=== PATIENT | male | born 1945 | race Caucasian/White ===

== ENCOUNTER 2018-07-21 14:01 | Inpatient (IN) ==
[2018-07-21] MEDS ORDERED: Loratadine 10 MG TABLET PO PRN (18:45)
[2018-07-21] MEDS ORDERED: MOM Conc 10 ML UD.LIQ PO PRN (18:53)
[2018-07-21] MEDS ORDERED: Sennosides 8.6 MG TABLET PO PRN (18:55)
[2018-07-21] MEDS ORDERED: Ondansetron ODT 4 MG TAB.RAPDIS SL PRN (18:55)
[2018-07-21] MEDS ORDERED: Acetaminophen 325 MG TABLET PO PRN (18:56)
[2018-07-21] MEDS ORDERED: Mag Hydrox/Al Hydrox/Simeth 30 ML UDC PO PRN (18:56)
[2018-07-21] MEDS ORDERED: Naloxone 0.4 MG/ML INJ IVP PRN (18:58)
[2018-07-21] MEDS: *HR* OxyCODONE Immed Rel 5 MG TABLET PO PRN (20:08)
[2018-07-22] MEDS: *HR* OxyCODONE Immed Rel 5 MG TABLET PO PRN ×3 (05:43→20:15)
[2018-07-22 06:50] LABS: Basophils # 0.1 K/mcL (0.0-0.2); Basophils % 0.5 %; Eosinophils # 0.3 K/mcL (0.0-0.6); Hematocrit 38.1 % (37.5-50.1); Immature Granulocytes % 1.5 % (0-4); Lymphocytes # 1.8 K/mcL (0.6-4.6); Lymphocytes % 16.5 %; Mean Corpuscular HGB Conc 34.1 g/dL (31.6-35.5); Mean Corpuscular Hemoglobin 30.4 pg (28.0-33.3); Mean Corpuscular Volume 89.2 fL (83.0-100.0); Mean Platelet Volume 10.1 fL (9.4-12.4); Monocytes # 1.5 K/mcL (0.0-1.3); Monocytes % 13.5 %; Neutrophils # 7.1 K/mcL (1.6-8.9); Platelet Count 208 K/mcL (140-400); Red Blood Count 4.27 M/mcL (4.19-5.50); Red Cell Distribution Width 12.4 % (11.5-14.5); White Blood Count 10.9 K/mcL (4.3-11.1)
[2018-07-22 07:03] LABS: INR 1.3; Prothrombin Time 14.5 Seconds (9.4-12.1)
[2018-07-22 07:06] LABS: Activated Partial Thrombo Time 26.2 Seconds (26.0-36.0)
[2018-07-22 07:08] LABS: BUN/Creatinine Ratio 21 (6-26); Blood Urea Nitrogen 18 mg/dL (8-23); Calcium 8.3 mg/dL (8.6-10.3); Carbon Dioxide 26 mEq/L (23-29); Chloride 98 mEq/L (98-107); Glucose 135 mg/dL (70-105); Osmolality,Calculated 272 (280-300); Sodium 129 mEq/L (136-145); eGFR For African Americans > 60 (> 60); eGFR For Non-African Americans > 60 (> 60)
[2018-07-22] MEDS: Ascorbic Acid 500 MG TABLET PO SCH ×2 (09:43→16:04)
[2018-07-22] MEDS: Multivit/Ca/Min/Fe/FA 1 TAB TABLET PO SCH (09:43)
[2018-07-22] MEDS: *HR* Enoxaparin 40 MG/0.4 ML SYRINGE SQ SCH (09:43)
--- NOTE | 2018-07-22 12:27 | Internal Med History&Physical ---
Date of Encounter: 07/22/18 Time of Encounter: 12:25 Assessment and Plan (1) Status post total replacement of left hip Current visit: Yes Status: Acute PT and OT to eval and treat. Will follow progress. Follow up with Dr. Calderon as scheduled. Monitor pain. Controlled at this time. Continue Lovenox for DVT prophylaxis. (2) History of CVA (cerebrovascular accident) Current visit: Yes Status: Chronic No new neurological deficits. No deficits remaining from CVA. (3) Arthritis of left hip Current visit: Yes Status: Chronic Status post left total hip replacement. (4) Obesity (BMI 30.0-34.9) Current visit: No Status: Chronic Internal Medicine - H&P: HPI Admitted From: Hospital to Hospital Transfer Plans for Post Hospital Care: Home History of present illness: Mr. Bhagat is a 73 year old male admitted to inpatient rehab unit status post left total hip replacement. Had left total hip replacement on 07/18/[address] Calderon at [place] and [place]. Past medical history includes CVA, left hip arthritis. Patient retired last week from work and lives at home. States pain is controlled with current medication. Denies fever, chills, nausea vomiting or diarrhea. Denies chest pain and shortness of breath. States last bowel movement was 4 days ago. Started on stool softeners. Maintaining appetite and hydration. Past Med Surg Social Fam HX - Past Medical History Medical history: cancer, TIA Additional medical history: skin, Cerebral aneurysm, lumbar radiculopathy with disc herniation, basal cell carcinoma, actoinic keratosis Psychiatric history: no psych history - Past Surgical History Surgical History: other Additional surgical history: Anuerysm repair, skin ca, herniation at l2l3, hip sx - Social History Smoking Status: Never smoker Smokeless Tobacco Status: No Alcohol use: occasionally Drug use: none - Family History Mother Living Status: Hx Family Cardiac Disorders: No Hx Family Respiratory Disorders: No Hx Family Cancer: No Hx Family GI Disorders: No Hx Family Endocrine Disorder: No Hx Family Neuromuscular Disorders: No Hx Family Neurologic Disorders: No Hx Family HEENT Disorders: No Hx Family Autoimmune Disorders: No Father Living Status: Age at : 82 Cause of : stroke Hx Family Cardiac Disorders: No Hx Family Respiratory Disorders: No Hx Family Cancer: No Hx Family GI Disorders: No Internal Medicine - H&P: Meds Aspirin Enteric Coated [Aspirin EC] 325 mg PO BID #20 tablet. 07/18/18 [Rx] Loratadine [Allergy Relief] 10 mg PO DAILY PRN 07/18/18 [History] OxyCODONE Immed Rel [Roxicodone 5 MG] 5 mg PO Q6HR PRN 5 Days #20 tablet 07/18/18 [Rx] Ascorbic Acid [Vitamin C] 500 mg PO BIDWM 07/21/18 [History] Docusate [Colace] 100 mg PO BID 07/21/18 [History] Allergy/AdvReac Type Severity Reaction Status Date / Time No Known Allergies Allergy Verified 10/10/15 08:10 All Systems PM: A 10-system review of systems was performed and is negative for pertinent findings except as documented above in the HPI. - Constitutional Constitutional: no chills, no fever(s), no night sweats - EENT Eyes: no change in vision, no discharge, no pain, no photophobia Ears: no ear discharge, no ear pain, no tinnitus Nose, mouth and throat: no dysphagia, no nasal discharge, no neck pain, no sore throat - Cardiovascular Cardiovascular ROS IM: no chest pain, no diaphoresis, no dyspnea, no lightheadedness, no palpitations, no syncope - Respiratory Respiratory: no cough, no dyspnea, no wheezing, no excessive phlegm production - Gastrointestinal Gastrointestinal: no abdominal pain, no diarrhea, no hematemesis, no hematochezia, no melena, no nausea, no vomiting - Musculoskeletal Musculoskeletal ROS IM: no numbness, no tingling - Integumentary Integumentary IM: no rash, no unusual bruising - Neurological Neurological ROS: no confusion, no convulsions, no focal weakness, no numbness, no tingling, no tremor(s) - Hematologic/Lymphatic Hematologic/Lymphatic: no easy bruising - Constitutional Vitals: Temp Pulse Resp BP Pulse Ox 98.5 F 81 18 131/80 95 07/22/18 06:51 07/22/18 06:51 07/22/18 06:51 07/22/18 06:51 07/22/18 06:51 General appearance: Present: cooperative, A&O X 3, pleasant, no acute distress, obese, answers questions appropriately - Head Head exam: Present: atraumatic, normocephalic - Eye Eye exam: Present: PERRL, conjuntiva pink, sclera anicteric Pupils: Present: PERRL - Neck Neck exam general surgery: Present: supple, trachea midline. Absent: lymp hadenopathy - Respiratory Respiratory exam: Present: CTAB. Absent: accessory muscle use, rales, rhonchi, wheezes - Cardiovascular Cardiovascular exam: Present: RRR, +S1, +S2. Absent: diastolic murmur, gallop, rubs, systolic murmur - GI/Abdominal GI/Abdominal exam: Present: normal bowel sounds, soft, no peritoneal signs. Absent: distended, tenderness - Extremities Exam Extremities exam: Present: warm, radial pulses palpable and symmetrical. Absent: calf tenderness, cyanotic, pedal edema - Incison Comments: Left hip dressing dry and intact. Surrounding edema - Neurological Exam Neurological exam: Present: CN II-XII intact, oriented X3, no focal deficits. Absent: pronater drift, facial droop, speech deficit - Skin Skin exam: Present: dry, intact Internal Med - H&P Results - Labs CBC & Chem 7: 07/22/18 05:55 07/22/18 05:55 Labs: Short CBC 07/22/18 Range/Units 05:55 WBC 10.9 (4.3-11.1) K/mcL Hgb 13.0 (12.9-16.9) g/dL Hct 38.1 (37.5-50.1) % Plt Count 208 (140-400) K/mcL Neutrophils # 7.1 (1.6-8.9) K/mcL BMP 07/22/18 05:55 Sodium 129 L Potassium 4.0 Chloride 98 Carbon Dioxide 26 BUN 18 Creatinine 0.84 Glucose 135 H Calcium 8.3 L
[2018-07-23] MEDS: Ascorbic Acid 500 MG TABLET PO SCH ×2 (08:37→17:12)
[2018-07-23] MEDS: Multivit/Ca/Min/Fe/FA 1 TAB TABLET PO SCH (08:37)
[2018-07-23] MEDS: *HR* Enoxaparin 40 MG/0.4 ML SYRINGE SQ SCH (08:37)
[2018-07-23] MEDS: *HR* OxyCODONE Immed Rel 5 MG TABLET PO PRN ×2 (09:59→19:53)
--- NOTE | 2018-07-23 10:05 | Internal Med Progress Note ---
Date of Encounter: 07/23/18 Time of Encounter: 10:04 - Assessment and plan (1) Status post total replacement of left hip Current Visit: Yes Status: Acute Assessment and plan: Continue PT and OT. Will follow progress. Continue current medication for pain. Effective at this time. Follow up with ortho as scheduled. (2) History of CVA (cerebrovascular accident) Current Visit: Yes Status: Chronic Assessment and plan: No new neurological deficits. Monitor. (3) Arthritis of left hip Current Visit: Yes Status: Chronic Assessment and plan: Status post left total hip replacement. (4) Obesity (BMI 30.0-34.9) Current Visit: No Status: Chronic - Subjective Interval history: Patient participating well with therapy. Ambulating with Walker. States he slept well and pain is controlled with medication. Encouraging patient to take pain medication prior to therapy. Maintaining appetite and hydration. Denies fever, chills, nausea vomiting or diarrhea. Denies shortness of breath or chest pain. - Constitutional Vitals: Temp Pulse Resp BP Pulse Ox 98.0 F 81 14 133/79 95 07/23/18 10:00 07/23/18 10:00 07/23/18 10:00 07/23/18 10:00 07/23/18 10:00 General appearance: Present: cooperative, A&O X 3, pleasant, no acute distress, obese, answers questions appropriately - Head Head exam: Present: atraumatic, normocephalic - Eye Eye exam: Present: PERRL, conjuntiva pink, sclera anicteric Pupils: Present: PERRL - Neck Neck exam general surgery: Present: supple, trachea midline. Absent: lymph adenopathy - Respiratory Respiratory exam: Present: CTAB. Absent: accessory muscle use, rales, rhonchi, wheezes - Cardiovascular Cardiovascular exam: Present: RRR, +S1, +S2. Absent: diastolic murmur, gallop, rubs, systolic murmur - GI/Abdominal GI/Abdominal exam: Present: normal bowel sounds, soft, no peritoneal signs. Absent: distended, tenderness - Extremities Exam Extremities exam: Present: warm, radial pulses palpable and symmetrical. Absent: calf tenderness, cyanotic, pedal edema Additional comments: Non-pitting edema to left lower extremity - Incison Comments: Left hip incision dressing dry and intact. No drainage. Surrounding edema. - Neurological Exam Neurological exam: Present: CN II-XII intact, oriented X3, no focal deficits. Absent: pronater drift, facial droop, speech deficit - Skin Skin exam: Present: dry, intact Internal Medicine: Result - Labs CBC & Chem 7: 07/22/18 05:55 07/22/18 05:55 - ABG Interpretation ABG results: PT/INR, D-dimer PT 14.5 Seconds (9.4-12.1) H 07/22/18 05:55 Consult Discharge Plan - Plan Referrals: NONE,PCP [Primary Care Provider] -
[2018-07-24] MEDS: *HR* OxyCODONE Immed Rel 5 MG TABLET PO PRN ×2 (08:13→15:52)
[2018-07-24] MEDS: *HR* Enoxaparin 40 MG/0.4 ML SYRINGE SQ SCH (08:13)
[2018-07-24] MEDS: Ascorbic Acid 500 MG TABLET PO SCH ×2 (08:13→15:53)
[2018-07-24] MEDS: Multivit/Ca/Min/Fe/FA 1 TAB TABLET PO SCH (08:13)
--- NOTE | 2018-07-24 10:15 | Internal Med Progress Note ---
Date of Encounter: 07/24/18 Time of Encounter: 10:13 - Assessment and plan (1) Status post total replacement of left hip Current Visit: Yes Status: Acute Assessment and plan: No current issues. Patient continues with pain to his left hip during therapy and mobilization but states pain is tolerable with current medications. Left hip surgical incision appears healthy. Patient to go to orthophoric today and will await recommendations. Patient being prepared for discharge tomorrow and will continue therapy to outpatient [facility] (2) History of CVA (cerebrovascular accident) Current Visit: Yes Status: Chronic Assessment and plan: History of CVA but no residual noted. Patient denies any issues. We will continue with current plan and care (3) Hyponatremia Current Visit: Yes Status: Acute Assessment and plan: Patient's labs show sodium of 129. Patient currently is asymptomatic. We will review patient's medications and lab history. No current treatment started - Time Spent With Patient less than 15 minutes - Subjective Interval history: Patient appears relaxed currently denies any issues. Patient states he continues to have pain to his left hip surgical site during therapy but that his pain has been tolerable with current medications. Patient states that he feels physical therapy is progressing well - Constitutional Vitals: Temp Pulse Resp BP Pulse Ox 98.4 F 86 15 155/89 95 07/24/18 08:52 07/24/18 08:52 07/24/18 08:52 07/24/18 08:52 07/24/18 08:52 General appearance: Present: cooperative, A&O X 3, pleasant, no acute distress, obese, answers questions appropriately - Head Head exam: Present: atraumatic, normocephalic - Eye Eye exam: Present: PERRL, conjuntiva pink, sclera anicteric Pupils: Present: PERRL - Neck Neck exam general surgery: Present: supple, trachea midline. Absent: lymphadenopathy - Respiratory Respiratory exam: Present: CTAB. Absent: accessory muscle use, rales, rhonchi, wheezes - Cardiovascular Cardiovascular exam: Present: RRR, +S1, +S2. Absent: diastolic murmur, gallop, rubs, systolic murmur - GI/Abdominal GI/Abdominal exam: Present: normal bowel sounds, soft, no peritoneal signs. Absent: distended, tenderness - Extremities Exam Extremities exam: Present: warm, radial pulses palpable and symmetrical. Abs ent: calf tenderness, cyanotic, pedal edema Additional comments: Slight nonpitting swelling to the left leg distal to hip surgical site. Left hip surgical incision appears healthy with no ecchymosis or erythema. Slight swelling. - Neurological Exam Neurological exam: Present: CN II-XII intact, oriented X3, no focal deficits. Absent: pronater drift, facial droop, speech deficit - Skin Skin exam: Present: dry, intact Internal Medicine: Result - Labs CBC & Chem 7: 07/22/18 05:55 07/22/18 05:55 - ABG Interpretation ABG results: PT/INR, D-dimer PT 14.5 Seconds (9.4-12.1) H 07/22/18 05:55 Consult Discharge Plan - Plan Referrals: NONE,PCP [Primary Care Provider] -
[2018-07-24 16:45] LABS: BUN/Creatinine Ratio 27 (6-26); Blood Urea Nitrogen 23 mg/dL (8-23); Calcium 8.5 mg/dL (8.6-10.3); Carbon Dioxide 27 mEq/L (23-29); Chloride 99 mEq/L (98-107); Glucose 180 mg/dL (70-105); Osmolality,Calculated 280 (280-300); Potassium 4.2 mEq/L (3.5-5.1); Sodium 131 mEq/L (136-145); eGFR For African Americans > 60 (> 60); eGFR For Non-African Americans > 60 (> 60)
[2018-07-25] MEDS: Ascorbic Acid 500 MG TABLET PO SCH (08:14)
[2018-07-25] MEDS: Multivit/Ca/Min/Fe/FA 1 TAB TABLET PO SCH (08:14)
[2018-07-25] MEDS: *HR* Enoxaparin 40 MG/0.4 ML SYRINGE SQ SCH (08:14)
--- NOTE | 2018-07-25 08:17 | Discharge Summary ---
Date of Encounter: 07/25/18 Time of Encounter: 08:14 - Discharge Diagnosis (1) Status post total replacement of left hip Priority: Primary Status: Acute Comments: Left hip surgical incision appears healthy and intact. Slight amount of edema to left hip and left distal leg. No ecchymosis or erythema noted at surgical site. And follow-up with orthopedic surgeon with no further recommendations received. Patient will continue with follow-up to orthopedics and PCP. Prescription provided with a medications at discharge (2) History of CVA (cerebrovascular accident) Priority: Secondary Status: Chronic Comments: No acute issues during stay of facility. Patient shows no residual to remote CVA. We will continue follow-up with PCP (3) Hyponatremia Priority: Secondary Status: Acute Comments: Patient's sodium was 129 on admission and with follow-up labs had increased 131. Patient is continue follow-up with PCP for further evaluation and treatment. Hospital course: Mr. Bhagat is a 73 year old male admitted to inpatient rehab unit status post left total hip replacement. Had left total hip replacement on 07/18/[address] Calderon at [facility] and [place]. Past medical history includes CVA, left hip arthritis. Patient retired last week from work and lives at home. Left surgical incision appears healthy and intact with no ecchymosis or erythema noted. Slight edema distal leg. States pain is controlled with current medication. Denies fever, chills, nausea vomiting or diarrhea. Denies chest pain and shortness of breath. Patient has had follow-up with orthopedic surgery yesterday with no new recommendations received. Patient will be discharged home and is to continue follow-up with orthopedic and PCP. Patient will continue with physical therapy through outpatient services here at [facility] Discharge discussed with: patient Time spent discussing smoking cessation with patient: 3 to 10 minutes - Time Spent with Patient Total time spent providing and/or coordinating discharge services: Time spent: Less than 30 minutes - Discharge Medications Prescriptions: No Action Loratadine [Allergy Relief] 10 mg PO DAILY PRN PRN Reason: Allergy Symptoms Aspirin Enteric Coated [Aspirin EC] 325 mg PO BID #20 tablet. Docusaluis felipe [Colace] 100 mg PO BID Ascorbic Acid [Vitamin C] 500 mg PO BIDWM Home Medications: Aspirin Enteric Coated [Aspirin EC] 325 mg PO BID #20 tablet. 07/18/18 [Rx] Loratadine [Allergy Relief] 10 mg PO DAILY PRN 07/18/18 [History] Ascorbic Acid [Vitamin C] 500 mg PO BIDWM 07/21/18 [History] Docusate [Colace] 100 mg PO BID 07/21/18 [History] Allergies/Adverse Reactions: Allergy/AdvReac Type Severity Reaction Status Date / Time No Known Allergies Allergy Verified 10/10/15 08:10 Date of admission: 07/21/18 16:58 Primary care physician: Osman Mayorga Jr, MD Consults: 07/21/18 18:46 Consult to Occupational Therapy [CONS] Routine Comment: Evaluate, develop and implement POC Reason for Consult: LTHR Does patient have active BEDREST order?: No Is patient medically & hemodynamically stable?: Yes Patient assessed for mobility or mobilized this visit?: Yes Consult to Physical Therapy [CONS] Routine Comment: Evaluate, develop and implement POC Reason for Consult: LTHR Does patient have active BEDREST order?: No Is patient medically & hemodynamically stable?: Yes Patient assessed for mobility or mobilized this visit?: Yes Consult to Recreational Therapy [CONS] Routine Comment: Evaluate, develop and implement POC Consult to Tur[employer] Lathe Machinist [CONS] Routine Reason for SW Consult: LTHR Discharging clinician: Everett Dailey - Constitutional Vitals: Temp Pulse Resp BP Pulse Ox 98.1 F 93 17 137/60 94 07/24/18 18:46 07/24/18 18:46 07/24/18 18:46 07/24/18 18:46 07/24/18 18:46 General appearance: Present: cooperative, A&O X 3, pleasant, no acute distress, obese, answers questions appropriately - Head Head exam: Present: atraumatic, normocephalic - Eye Eye exam: Present: PERRL, conjuntiva pink, sclera anicteric Pupils: Present: PERRL - Neck Neck exam general surgery: Present: supple, trachea midline. Absent: lymphadenopathy - Respiratory Respiratory exam: Present: CTAB. Absent: accessory muscle use, rales, rhonchi, wheezes - Cardiovascular Cardiovascular exam: Present: RRR, +S1, +S2. Absent: diastolic murmur, gallop, rubs, systolic murmur - GI/Abdominal GI/Abdominal exam: Present: normal bowel sounds, soft, no peritoneal signs. Absent: distended, tenderness - Extremities Exam Extremities exam: Present: warm, radial pulses palpable and symmetrical. Absent: calf tenderness, cyanotic, pedal edema Additional comments: Left hip surgical incision appears healthy and intact. Slight edema to left hip. Left distal leg shows nonpitting edema. - Neurological Exam Neurological exam: Present: CN II-XII intact, oriented X3, no focal deficits. Absent: pronater drift, facial droop, speech deficit - Skin Skin exam: Present: dry, intact - Patient Status Disposition: Home, Self-Care Condition: Good Functional capacity at discharge: uses cane/walker Overall status at discharge: patient is progressing back to baseline - Discharge Instructions Follow Up With: Osman Mayorga Jr, MD [Primary Care Provider] - 08/04/18 1:00 pm (Germania Neville NP) NONE,PCP [Non-Partnered Physician] - - Diet and Activity Activity: ambulate only with your walker, as per physical therapy, increase activity as tolerated Diet: low fat, low cholesterol, low salt diet
[2018-07-25 08:40] VITALS: BP 155/75
== END 2018-07-25 14:01 | disposition home or self-care (01) | DRG 560 ==
LOC: INPGRE 16:58